=== PATIENT | female | born 1985 | race Caucasian/White ===

== ENCOUNTER 2021-10-16 15:37 | Emergency (ER) | payer BC ==
[2021-10-16 15:49] VITALS: BMI 17.2
[2021-10-16 17:51] VITALS: BP 102/57; PULSE 87
[2021-10-16 21:00] VITALS: TEMP 99
== END 2021-10-16 23:40 | disposition home or self-care (01) ==
LOC: JER 15:37
DX: J06.9 Acute upper respiratory infection, unspecified (principal); R05.1 Acute cough
CPT/HCPCS: 76815-TC; 76830-TC; 87651; 99281-25; C9803-CS; U0003; U0005

== ENCOUNTER 2022-02-01 19:20 | Inpatient (IN) | payer BC ==
[2022-02-01] MEDS ORDERED: OXYTOCIN 30 UNITS in 0.9% NS 30 UNIT/500 ML INFUS.BAG IVPB SCH (20:15)
[2022-02-01] MEDS: ELECTROLYTE-148 SOLN 1,000 ML IV SCH (21:00)
[2022-02-01] MEDS ORDERED: OXYTOCIN 30 UNITS in 0.9% NS 30 UNIT/500 ML INFUS.BAG IVPB ONE (21:06)
[2022-02-01 21:45] VITALS: BMI 20.8
[2022-02-01 21:47] LABS: HEMATOCRIT 34.2 % (32.4-45.2); HEMOGLOBIN 11.5 GM/dL (10.7-15.3); MCH 30.3 pg (25.7-33.7); MCHC 33.7 g/dl (32.0-36.0); MEAN CELL VOLUME 89.9 fl (80-96); MEAN PLT VOLUME 7.8 fl (7.5-11.1); PLATELET COUNT 271 10^3/uL (134-434); RBC 3.81 M/mm3 (3.60-5.2); RDW 14.2 % (11.6-15.6); WHITE BLOOD COUNT 11.7 K/mm3 (4.0-10.0)
[2022-02-01 21:59] LABS: INR 0.97 (0.83-1.09); PROTHROMBIN TIME (PATIENT) 11.2 SEC (9.7-13.0)
[2022-02-01 22:02] LABS: ACTIVATED PTT 28.8 SECONDS (25.2-36.5)
[2022-02-01 22:14] LABS: BLOOD UREA NITROGEN 15.2 mg/dL (7-18); CALCIUM 8.5 mg/dL (8.5-10.1)
[2022-02-01 22:18] LABS: CREATININE 0.5 mg/dL (0.55-1.3)
[2022-02-01 22:56] LABS: ANISOCYTOSIS 0; MACROCYTOSIS 0; PLATELET ESTIMATE NORMAL
[2022-02-01 23:09] LABS: HIV INTERPRETATION NEGATIVE (NEGATIVE)
[2022-02-02] MEDS: ELECTROLYTE-148 SOLN 1,000 ML IV SCH (04:40)
[2022-02-02] MEDS ORDERED: FENTANYL/BUPIVACAINE/NS/PF - PCEA - 50 ML DISP.SYRIN EP ONE (14:19)
[2022-02-02] MEDS ORDERED: NALOXONE HCL 0.4 MG/ML VIAL IVPUSH PRN (14:26)
[2022-02-02] MEDS ORDERED: BUPIVACAINE HCL/PF 0.25% (2.5MG/ML) 10 ML VIAL ONE (14:28)
[2022-02-02] MEDS ORDERED: FENTANYL/BUPIVACAINE/NS/PF - PCEA - 50 ML DISP.SYRIN EP SCH (14:30)
[2022-02-02] MEDS ORDERED: OXYTOCIN 20 UNITS in 0.9% NS 20 UNIT/1,000 ML INFUS.BAG IV ONE (16:39)
[2022-02-02] MEDS ORDERED: OXYTOCIN 20 UNITS in 0.9% NS 20 UNIT/1,000 ML INFUS.BAG IV SCH (18:15)
[2022-02-02] MEDS ORDERED: BISACODYL 10 MG SUPP.RECT RC PRN (18:15)
[2022-02-02] MEDS ORDERED: WITCH HAZEL 50% (TUCKS) 40 PAD/JAR PAD TP PRN (18:15)
[2022-02-02] MEDS ORDERED: BENZOCAINE 28 GM HEMORRHOIDAL OINTMENT TP PRN (18:15)
[2022-02-02] MEDS ORDERED: BENZOCAINE 20% 57 GM BOTTLE TP PRN (18:15)
[2022-02-02] MEDS ORDERED: ACETAMINOPHEN 325 MG TABLET (FP) PO PRN (18:15)
[2022-02-02] MEDS ORDERED: IBUPROFEN 600 MG TABLET (FP) PO PRN (18:15)
[2022-02-02] MEDS ORDERED: METHYLERGONOVINE MALEATE 0.2 MG/1 ML AMP IM PRN (18:15)
[2022-02-02] MEDS ORDERED: oxyCODONE HCL 5 MG TABLET PO PRN (18:15)
[2022-02-02 18:57] LABS: CORD BASE EXCESS -2.3 mmol/L (0-2); CORD BASE EXCESS -4.7 mmol/L (0-2); CORD HCO3 23.2 mmHg (20-29); CORD PCO2 41.6 mmHg (30-78); CORD PCO2 52.6 mmHg (30-78); CORD pH 7.263 (7.14-7.44); CORD pH 7.361 (7.14-7.44)
[2022-02-02 19:18] VITALS: RESP 18
[2022-02-03 08:06] LABS: BASO % 0.3 % (0-2.0); EOS % 0.4 % (0-4.5); HEMATOCRIT 28.7 % (32.4-45.2); HEMOGLOBIN 9.7 GM/dL (10.7-15.3); LYMPH % 11.2 % (8-40); MCH 30.7 pg (25.7-33.7); MCHC 33.9 g/dl (32.0-36.0); MEAN CELL VOLUME 90.7 fl (80-96); MEAN PLT VOLUME 7.5 fl (7.5-11.1); MONO % 6.9 % (3.8-10.2); NEUT % 81.2 % (42.8-82.8); PLATELET COUNT 203 10^3/uL (134-434); RBC 3.17 M/mm3 (3.60-5.2); RDW 14.2 % (11.6-15.6); WHITE BLOOD COUNT 17.4 K/mm3 (4.0-10.0)
[2022-02-03] MEDS: PRENATAL VITAMINS W/ FOLIC ACID TABLET (FP) PO SCH (09:59)
[2022-02-03] MEDS ORDERED: SENNOSIDES/DOCUSATE COMBO (SENNA PLUS) TABLET (UD) PO PRN (22:00)
[2022-02-04] MEDS: PRENATAL VITAMINS W/ FOLIC ACID TABLET (FP) PO SCH (10:56)
[2022-02-04 11:52] VITALS: BP 100/65; PULSE 97; TEMP 97.9
== END 2022-02-04 16:45 | disposition home or self-care (01) | DRG 807 ==
LOC: JLDR 19:20 → J3W 02-02 20:48
PROVIDERS: ADMIT Obstetrics & Gynecology; ATTEND Obstetrics & Gynecology
PROC: 0KQM0ZZ Repair Perineum Muscle, Open Approach (ICD-10-PCS; principal; 2022-02-02)
PROC: 10E0XZZ Delivery of Products of Conception, External Approach (ICD-10-PCS; 2022-02-02)
DX: O36.5930 Maternal care for other known or suspected poor fetal growth, third trimester, not applicable or unspecified (principal); Z37.0 Single live birth; O70.1 Second degree perineal laceration during delivery; Z3A.37 37 weeks gestation of pregnancy
CPT/HCPCS: 36415; 36600; 59409; 80048; 82803; 85025; 85610; 85730; 86780; 86850; 86900; 86901; 87389; 88307-TC